=== PATIENT | female | born 1940 | race Caucasian/White ===

== ENCOUNTER 2023-06-26 20:42 | Emergency (ER) | payer MEDICARE, BC ==
[2023-06-26] MEDS ORDERED: Famotidine/PF 20 mg/2ml Vial ONE (21:15)
[2023-06-26] MEDS ORDERED: methylPREDNISolone Sod Succ/PF 125 MG/2 ML VIAL ONE (21:15)
[2023-06-26] MEDS ORDERED: diphenhydrAMINE 50 MG/ML VIAL ONE (21:15)
== END 2023-06-26 22:38 | disposition home or self-care (01) ==
LOC: MADERS 20:42
DX: L98.9 Disorder of the skin and subcutaneous tissue, unspecified (principal); R20.8 Other disturbances of skin sensation; I10 Essential (primary) hypertension; Z87.891 Personal history of nicotine dependence
CPT/HCPCS: 96374; 96375; J1200; J2930; S0028

== ENCOUNTER 2023-08-03 10:39 | Emergency (ER) | payer MEDICARE, BC ==
[2023-08-03] MEDS ORDERED: diphenhydrAMINE 50 MG/ML VIAL ONE (11:10)
[2023-08-03] MEDS ORDERED: Famotidine/PF 20 mg/2ml Vial ONE (11:11)
[2023-08-03] MEDS ORDERED: methylPREDNISolone Sod Succ/PF 125 MG/2 ML VIAL ONE (11:11)
== END 2023-08-03 11:53 | disposition home or self-care (01) ==
LOC: MADERS 10:39
DX: R21 Rash and other nonspecific skin eruption (principal); I10 Essential (primary) hypertension; J44.9 Chronic obstructive pulmonary disease, unspecified; Z87.891 Personal history of nicotine dependence; Z55.6 Problems related to health literacy
CPT/HCPCS: 96374; 96375; J1200; J2930; S0028